=== PATIENT | female | born 1955 | race Caucasian/White ===

== ENCOUNTER 2016-10-28 14:09 | Emergency (ER) | payer SELFPAY ==
[~2016-10-28] VITALS: Ht 160 cm; Wt 59.0 kg
[2016-10-28 14:25] VITALS: BP 175/81
[2016-10-28] MEDS ORDERED: AMOX500C PO (14:56)
[2016-10-28] MEDS ORDERED: HYDR-971 PO (14:56)
--- NOTE | 2016-10-28 14:56 | PHYS DOC ---
Past Medical History Past Medical History: COPD, High Cholesterol, Hypertension Past Surgical History: No Surgical History Alcohol Use: None Drug Use: None Adult General Chief Complaint Chief Complaint: DENTAL PROBLEM HPI HPI Patient is a 61 year old female presents to the emergency department stating that she has having pain and discomfort in her upper right dental area. Patient only has 1 tooth on that side that appears to be yellow in color. The areas appear to be very red. She has swelling noted from the right cheek down to the lower jawline. She denies fever, chills or any nausea vomiting. She denies having a dentist which she can follow-up with. She states she's been taken ibuprofen for pain with minimal relief. Review of Systems Review of Systems Constitutional: Denies fever or chills [] Eyes: Denies change in visual acuity, redness, or eye pain [] HENT: Denies nasal congestion or sore throat. Complaint of dental pain Respiratory: Denies cough or shortness of breath [] Cardiovascular: No additional information not addressed in HPI [] GI: Denies abdominal pain, nausea, vomiting, bloody stools or diarrhea [] : Denies dysuria or hematuria [] Musculoskeletal: Denies back pain or joint pain [] Integument: Denies rash or skin lesions [] Neurologic: Denies headache, focal weakness or sensory changes [] Endocrine: Denies polyuria or polydipsia [] Allergies Allergies Allergies Coded Allergies Type Severity Reaction Last Updated Verified No Known Drug Allergies 10/28/16 No Physical Exam Physical Exam Constitutional: Well developed, well nourished, no acute distress, non-toxic appearance. [] HENT: Normocephalic, atraumatic, bilateral external ears normal, oropharynx moist, no oral exudates, nose normal. Bilateral tympanic membranes appear to be normal. Throat with no erythematous. Patient with tenderness noted on the right upper gumline as well as around the only tooth that is along the right upper gum. Patient with swelling noted on the right upper cheek line down to the right lower gum line. Eyes: PERRLA, EOMI, conjunctiva normal, no discharge. [] Neck: Normal range of motion, no tenderness, supple, no stridor. [] Cardiovascular:Heart rate regular rhythm, no murmur [] Lungs & Thorax: Bilateral breath sounds clear to auscultation [] Skin: Warm, dry, no erythema, no rash. [] Back: No tenderness Extremities: No tenderness, no cyanosis, no clubbing, ROM intact, no edema. [] Neurologic: Alert and oriented X 3, normal motor function, normal sensory function, no focal deficits noted. [] Psychologic: Affect normal, judgement normal, mood normal. [] Current Patient Data Vital Signs Vital Signs Date Time Temp Pulse Resp B/P (MAP) Pulse Ox O2 Delivery O2 Flow Rate FiO2 10/28/16 14:25 97.8 97 16 98 Room Air 97.8 EKG EKG [] Radiology/Procedures Radiology/Procedures [] Course & Med Decision Making Course & Med Decision Making Pertinent Labs and Imaging studies reviewed. (See chart for details) Patient will be provided with hydrocodone here in the emergency department. She be provided with a prescription for amoxicillin as well as hydrocodone. She was instructed that hydrocodone will cause drowsiness do not take any be alert and oriented. Recommended warm salt water mouth rinses 4 times a day, warm moist packs to the jawline. She'll be provided with a dental list. Recommended following up within the next week with the dentist. Return back to emergency department for any increased swelling. Also recommended following up within the next 3-5 days to make sure that the swelling is starting to come down. Patient agrees with discharge traction is, treatment regimens and follow-up recommendations. All questions and concerns been answered at patient's bedside. [] Dragon Disclaimer Dragon Disclaimer This electronic medical record was generated, in whole or in part, using a voice recognition dictation system. Departure Departure Impression: Primary Impression: Dental abscess Disposition: 01 HOME, SELF-CARE Condition: STABLE Referrals: UNKNOWN PCP NAME (PCP) Patient Instructions: Dental Abscess Additional Instructions: Activity as tolerated. Hydrocodone for severe pain and discomfort. This medication will cause drowsiness do not take any be alert and oriented. Antibiotics as prescribed. Ibuprofen every 8 hours. Follow-up with the dentist within the week.. Return back to emergency prior signs symptoms of become worse. Follow-up in 3-5 days to make sure the swelling is starting to come down. Scripts Hydrocodone/Apap 5-325 (NORCO 5-325 TABLET) 1 Each Tablet 1 TAB PO PRN Q6HRS Y for PAIN, #15 TAB 0 Refills Prov: ANDREW GAMEZ PILOT SUBMERSIBLE 10/28/16 Amoxicillin (AMOXICILLIN) 500 Mg Capsule 1 CAP PO QID, #40 CAP Prov: ANDREW GAMEZ APRN 10/28/16 ANDREW GAMEZ APRN Oct 28, 2016 14:56
[2016-10-28] MEDS ORDERED: HYDROcodone/APAP 5/325MG 1 TAB TABLET PO ONE (15:00)
== END 2016-10-28 15:11 | disposition home or self-care (01) ==
LOC: ER 14:09
DX: K04.7 Periapical abscess without sinus (principal); J44.9 Chronic obstructive pulmonary disease, unspecified; E78.00 Pure hypercholesterolemia, unspecified; I10 Essential (primary) hypertension
CPT/HCPCS: 99283

== ENCOUNTER 2017-03-27 18:01 | Emergency (ER) | payer SELFPAY ==
[2017-03-27] MEDS: predniSONE 20 MG TABLET PO ×2 (20:12)
[2017-03-27] MEDS ORDERED: AZITHROMYCIN 250 MG TABLET. PO ×2 (20:15)
== END 2017-03-27 20:14 | disposition home or self-care (01) ==
LOC: ER 18:01
DX: J44.1 Chronic obstructive pulmonary disease with (acute) exacerbation (principal); I10 Essential (primary) hypertension; F17.200 Nicotine dependence, unspecified, uncomplicated; E78.00 Pure hypercholesterolemia, unspecified; Z79.899 Other long term (current) drug therapy; Z88.5 Allergy status to narcotic agent
CPT/HCPCS: 93005; 99284-25; J7512

== ENCOUNTER 2017-03-31 06:37 | Inpatient (IN) | payer SELFPAY ==
[2017-03-31] MEDS: IV NORMAL SALINE 1000ML BAG 1,000 ML IV (07:32)
[2017-03-31 07:33] LABS: ADD MAN DIFF? NO
[2017-03-31] MEDS: methylPREDNISolone SOD SUCC PF 125 MG/2 ML VIAL. IV (07:33)
[2017-03-31] MEDS: diphenhydrAMINE 50 MG/ML VIAL IV (07:34)
[2017-03-31 07:37] LABS: BASO % 1 % (0-3); EOS % 0 % (0-3); HEMATOCRIT 42.6 % (36.0-47.0); HEMOGLOBIN 14.8 g/dL (12.0-15.5); LYMPH # 0.7 x10^3/uL (1.0-4.8); LYMPH % 14 % (24-48); MEAN CORPUSCULAR HEMOGLOBIN 32 pg (25-35); MEAN CORPUSCULAR HGB CONC 35 g/dL (31-37); MEAN CORPUSCULAR VOLUME 93 fL (79-100); MONO # 0.8 x10^3/uL (0.0-1.1); MONO % 15 % (0-9); NEUT # 3.5 x10^3uL (1.8-7.7); NEUT % 70 % (31-73); PLATELET COUNT 166 x10^3/uL (140-400); RED BLOOD COUNT 4.58 x10^6/uL (3.50-5.40); RED CELL DISTRIBUTION WIDTH 13.9 % (11.5-14.5)
[2017-03-31] MEDS: FAMOTIDINE 20 MG/2 ML VIAL IVP (07:37)
[2017-03-31] MEDS: ONDANSETRON PF 4 MG/2 ML VIAL. IV (07:43)
[2017-03-31 07:46] LABS: ANION GAP 10 (6-14); BLOOD UREA NITROGEN 7 mg/dL (7-20); CALCIUM 8.5 mg/dL (8.5-10.1); CARBON DIOXIDE 26 mmol/L (21-32); CHLORIDE 96 mmol/L (98-107); CREATININE 0.6 mg/dL (0.6-1.0); GLUCOSE 91 mg/dL (70-99); POTASSIUM 3.9 mmol/L (3.5-5.1); SODIUM 132 mmol/L (136-145)
[2017-03-31 07:52] LABS: ALBUMIN 3.5 g/dL (3.4-5.0); ALK PHOS 67 U/L (46-116); ALT (SGPT) 46 U/L (14-59); AST (SGOT) 29 U/L (15-37); DIRECT BILIRUBIN 0.1 mg/dL (0.0-0.2); LIPASE 97 U/L (73-393); MAGNESIUM 1.8 mg/dL (1.8-2.4); TOTAL BILIRUBIN 0.3 mg/dL (0.2-1.0); TOTAL PROTEIN 7.7 g/dL (6.4-8.2)
[2017-03-31 07:53] LABS: LACTIC ACID 0.9 mmol/L (0.4-2.0)
[2017-03-31 07:59] LABS: TROPONINI 0.047 ng/mL (0.000-0.055)
[2017-03-31 08:03] LABS: NT-PRO BNP 138 pg/mL (0-124); THYROID STIM HORMONE (TSH) 1.187 uIU/mL (0.358-3.74)
[2017-03-31 08:03] LABS: CKMB INDEX 0.3 % (0-4); CKMB MASS 0.6 ng/mL (0.0-3.6); CREATINE KINASE 197 U/L (26-192)
[2017-03-31] MEDS ORDERED: ONDANSETRON PF 4 MG/2 ML VIAL. IV (10:00)
[2017-03-31] MEDS ORDERED: hydrALAZINE 20 MG/ML VIAL. IVP (13:15)
[2017-03-31] MEDS ORDERED: ACETAMINOPHEN 325 MG TABLET. PO (13:15)
[2017-03-31] MEDS ORDERED: DOCUSATE SODIUM 100 MG CAPSULE. PO (13:15)
[2017-03-31] MEDS ORDERED: ALBUTEROL SULFATE 2.5 MG/3 ML NEBU. NEB (13:15)
[2017-03-31] MEDS ORDERED: diphenhydrAMINE HCL 25 MG CAPSULE PO (13:30)
[2017-03-31 13:37] LABS: TROPONINI 0.052 ng/mL (0.000-0.055)
[2017-03-31] MEDS: ENOXAPARIN 40 MG/0.4 ML SYRINGE. SQ (14:00)
[2017-03-31 14:46] LABS: INFLUENZA A PATIENT NEGATIVE (NEGATIVE)
[2017-03-31 14:47] LABS: OBC FLU VALID
[2017-03-31 14:48] LABS: INFLUENZA B PATIENT POSITIVE (NEGATIVE)
[2017-03-31] MEDS: OSELTAMIVIR 75 MG CAPSULE PO ×2 (15:27→23:13)
[2017-03-31] MEDS: LISINOPRIL 20 MG TABLET PO ×2 (15:28→23:17)
[2017-03-31] MEDS: ASPIRIN ENTERIC COATED 81 MG TABLET.DR. PO (15:28)
[2017-03-31 16:34] LABS: TROPONINI 0.039 ng/mL (0.000-0.055)
[2017-03-31] MEDS: IPRATRPIUM/ALBUTEROL 0.5/2.5MG 3 ML NEBU. NEB ×2 (16:52→19:39)
[2017-03-31] MEDS: BUDESONIDE 0.5 MG/2 ML NEBU. NEB (19:39)
[2017-03-31] MEDS: LACTOBACILLUS RHAMNOSUS GG 1 CAPSULE. PO (20:46)
[2017-03-31] MEDS: ATORVASTATIN CALCIUM 20 MG TABLET PO (20:46)
[2017-03-31] MEDS: FAMOTIDINE 20 MG TABLET. PO (20:47)
[2017-03-31] MEDS: methylPREDNISolone SOD SUCC PF 40 MG/ML VIAL. IV (20:47)
[2017-04-01 05:20] LABS: ADD MAN DIFF? NO
[2017-04-01 05:26] LABS: BASO % 0 % (0-3); EOS % 0 % (0-3); HEMATOCRIT 41.1 % (36.0-47.0); HEMOGLOBIN 13.9 g/dL (12.0-15.5); LYMPH # 0.7 x10^3/uL (1.0-4.8); LYMPH % 13 % (24-48); MEAN CORPUSCULAR HEMOGLOBIN 32 pg (25-35); MEAN CORPUSCULAR HGB CONC 34 g/dL (31-37); MEAN CORPUSCULAR VOLUME 93 fL (79-100); MONO # 0.6 x10^3/uL (0.0-1.1); MONO % 11 % (0-9); NEUT # 4.2 x10^3uL (1.8-7.7); NEUT % 76 % (31-73); PLATELET COUNT 174 x10^3/uL (140-400); RED BLOOD COUNT 4.41 x10^6/uL (3.50-5.40); RED CELL DISTRIBUTION WIDTH 13.6 % (11.5-14.5); WHITE BLOOD COUNT 5.4 x10^3/uL (4.0-11.0)
[2017-04-01 05:39] LABS: ALBUMIN 3.1 g/dL (3.4-5.0); ALBUMIN/GLOBULIN RATIO 0.8 (1.0-1.7); ALK PHOS 56 U/L (46-116); ALT (SGPT) 36 U/L (14-59); ANION GAP 6 (6-14); AST (SGOT) 20 U/L (15-37); BLOOD UREA NITROGEN 9 mg/dL (7-20); BUN/CREATININE RATIO 18 (6-20); CALCIUM 8.4 mg/dL (8.5-10.1); CARBON DIOXIDE 28 mmol/L (21-32); CHLORIDE 96 mmol/L (98-107); CREATININE 0.5 mg/dL (0.6-1.0); GFR 124.6; GLUCOSE 138 mg/dL (70-99); POTASSIUM 4.4 mmol/L (3.5-5.1); SODIUM 130 mmol/L (136-145); TOTAL BILIRUBIN 0.3 mg/dL (0.2-1.0); TOTAL PROTEIN 7.2 g/dL (6.4-8.2)
[2017-04-01] MEDS: IPRATRPIUM/ALBUTEROL 0.5/2.5MG 3 ML NEBU. NEB ×4 (07:25→19:24)
[2017-04-01] MEDS: BUDESONIDE 0.5 MG/2 ML NEBU. NEB ×2 (07:26→19:24)
[2017-04-01] MEDS: OSELTAMIVIR 75 MG CAPSULE PO ×2 (08:13→21:31)
[2017-04-01] MEDS: ASPIRIN ENTERIC COATED 81 MG TABLET.DR. PO (08:13)
[2017-04-01] MEDS: methylPREDNISolone SOD SUCC PF 40 MG/ML VIAL. IV ×2 (08:13→21:32)
[2017-04-01] MEDS: LACTOBACILLUS RHAMNOSUS GG 1 CAPSULE. PO ×2 (08:13→21:32)
[2017-04-01] MEDS: LISINOPRIL 20 MG TABLET PO ×2 (08:13→21:31)
[2017-04-01] MEDS: ENOXAPARIN 40 MG/0.4 ML SYRINGE. SQ (14:00)
[2017-04-01] MEDS: FAMOTIDINE 20 MG TABLET. PO (21:31)
[2017-04-01] MEDS: ATORVASTATIN CALCIUM 20 MG TABLET PO (21:32)
[2017-04-02] MEDS: ONDANSETRON PF 4 MG/2 ML VIAL. IV (04:46)
[2017-04-02 04:51] LABS: ADD MAN DIFF? NO
[2017-04-02 04:53] LABS: BASO % 0 % (0-3); EOS % 0 % (0-3); HEMATOCRIT 39.7 % (36.0-47.0); HEMOGLOBIN 13.7 g/dL (12.0-15.5); LYMPH # 0.6 x10^3/uL (1.0-4.8); LYMPH % 12 % (24-48); MEAN CORPUSCULAR HEMOGLOBIN 32 pg (25-35); MEAN CORPUSCULAR HGB CONC 34 g/dL (31-37); MEAN CORPUSCULAR VOLUME 92 fL (79-100); MONO # 0.5 x10^3/uL (0.0-1.1); MONO % 8 % (0-9); NEUT # 4.3 x10^3uL (1.8-7.7); NEUT % 80 % (31-73); PLATELET COUNT 175 x10^3/uL (140-400); RED CELL DISTRIBUTION WIDTH 13.6 % (11.5-14.5); WHITE BLOOD COUNT 5.5 x10^3/uL (4.0-11.0)
[2017-04-02 05:21] LABS: ANION GAP 9 (6-14); BLOOD UREA NITROGEN 11 mg/dL (7-20); CALCIUM 8.8 mg/dL (8.5-10.1); CARBON DIOXIDE 24 mmol/L (21-32); CHLORIDE 96 mmol/L (98-107); CREATININE 0.5 mg/dL (0.6-1.0); GFR 124.6; GLUCOSE 159 mg/dL (70-99); POTASSIUM 4.1 mmol/L (3.5-5.1); SODIUM 129 mmol/L (136-145)
[2017-04-02] MEDS: IPRATRPIUM/ALBUTEROL 0.5/2.5MG 3 ML NEBU. NEB (08:28)
[2017-04-02] MEDS: BUDESONIDE 0.5 MG/2 ML NEBU. NEB (08:28)
[2017-04-02] MEDS: methylPREDNISolone SOD SUCC PF 40 MG/ML VIAL. IV (08:29)
[2017-04-02] MEDS: LACTOBACILLUS RHAMNOSUS GG 1 CAPSULE. PO (08:29)
[2017-04-02] MEDS: ASPIRIN ENTERIC COATED 81 MG TABLET.DR. PO (08:29)
[2017-04-02] MEDS: OSELTAMIVIR 75 MG CAPSULE PO (08:29)
[2017-04-02] MEDS: LISINOPRIL 20 MG TABLET PO (08:30)
[2017-04-02] MEDS ORDERED: ONDANSETRON ODT 4 MG TAB.RAPDIS. PO (09:30)
== END 2017-04-02 10:25 | disposition home or self-care (01) | DRG 193 ==
LOC: ER 06:37 → 2 NORTH 09:34
DX: J10.1 Influenza due to other identified influenza virus with other respiratory manifestations (principal); J96.00 Acute respiratory failure, unspecified whether with hypoxia or hypercapnia; J44.1 Chronic obstructive pulmonary disease with (acute) exacerbation; L92.9 Granulomatous disorder of the skin and subcutaneous tissue, unspecified; J84.10 Pulmonary fibrosis, unspecified; E78.5 Hyperlipidemia, unspecified; F10.20 Alcohol dependence, uncomplicated; F17.210 Nicotine dependence, cigarettes, uncomplicated; I10 Essential (primary) hypertension; F12.90 Cannabis use, unspecified, uncomplicated; Z82.49 Family history of ischemic heart disease and other diseases of the circulatory system; Z88.8 Allergy status to other drugs, medicaments and biological substances
CPT/HCPCS: 36415; 71046; 71250; 80048; 80053; 80076; 82553; 83605; 83690; 83735; 83880; 84443; 84484; 85025; 85610; 87070; 87186; 87205; 87804; 87804-59; 93005; 94640; 94760; 96361; 96374; 96375; 99285-25; J1200; J1956; J2405; J2920; J2930; J7030; J7620; J7626; S0028

== ENCOUNTER → 2018-08-08 | Outpatient (CLI) | payer OTHER ==
[2017-04-02 08:30] VITALS: BP 114/72
[~2018-08-08] MED LIST: ALBUTEROL SULFATE 2.5 MG/3 ML NEBU. NEB ONE; AMOX500C PO; ASPI81TA50 PO; ATOR20TA PO; AZIT250T6 PO; FAMO20TA5 PO; FLUT1DIS3 IH; GUAI600T47 PO; HYDR-3164 PO; IPRA4AER IH; LEVO500T59 PO; LISI-334 PO; ONDA4TAB12 PO; OSEL75CA PO; PRED20TA PO
== END | disposition home or self-care (01) ==
LOC: PF 07:20
PROVIDERS: ATTEND Internal Medicine
DX: Z02.71 Encounter for disability determination (principal); J44.9 Chronic obstructive pulmonary disease, unspecified
CPT/HCPCS: 94060; 94640; 94729; J7613